=== PATIENT | female | born 1985 | race Two or more races ===

== ENCOUNTER 2019-08-11 11:14 | Emergency (ER) | payer OTHER ==
[~2019-08-11] VITALS: Ht 165.1 cm; Wt 61.2 kg
--- NOTE | 2019-08-11 11:30 | NUR ---
C/O SHOOTING LOWER BACK PAIN RADIATING TO LEG SINCE 08/06 AFTER LIFTING A UNIT AT WORK AND WORST TODAY. APTIENT A/OX4, NO RESP DISTRESS NOTED. NEEDS ATTENDED.
--- NOTE | 2019-08-11 12:29 | NUR ---
ABHISHEK GUERRA AT BEDSIDE FOR EVAL.
[2019-08-11] MEDS ORDERED: HYDROCODONE/APAP 5/325MG 1 EACH TABLET ONE (13:00)
[2019-08-11] MEDS ORDERED: HYDROCODONE/APAP 5/325MG 1 EACH TABLET PO ONE (13:00)
[2019-08-11 13:10] VITALS: BP 120/77
--- NOTE | 2019-08-11 13:10 | NUR ---
Patient discharged to home in stable condition. Written and verbal after care instructions given. Patient verbalizes understanding of instruction.
== END 2019-08-11 13:10 | disposition home or self-care (01) ==
LOC: ER 11:15
DX: M54.5 Low back pain (principal)
CPT/HCPCS: 99283; J7040